=== PATIENT | male | born 1990 | race Caucasian/White ===

== ENCOUNTER → 2018-04-03 | Outpatient (CLI) | payer BC ==
[2018-04-03 17:42] LABS: BASO % 0.3 % (0.0-1.0); EOS % 0.1 % (0.0-3.0); HEMATOCRIT 45.8 % (42.0-52.0); HEMOGLOBIN 15.2 g/dl (13.5-17.5); IMMATURE GRANULOCYTE % 0.3 % (0-3.0); LYMPH # 1.1 10^3/uL (1.5-4.5); LYMPH % 12.5 % (24.0-44.0); MEAN CORPUSCULAR HGB CONC 33.2 g/dl (32.0-36.5); MEAN CORPUSCULAR VOLUME 84.5 fl (80.0-96.0); MONO # 1.4 10^3/uL (0.0-0.8); MONO % 15.8 % (0.0-5.0); NEUTROPHILS # 6.2 10^3/uL (1.8-7.7); PLATELET COUNT, AUTOMATED 248 10^3/uL (150-450); RED BLOOD COUNT 5.42 10^6/uL (4.30-6.10); WHITE BLOOD COUNT 8.8 10^3/uL (4.0-10.0)
[2018-04-03 17:58] LABS: ALBUMIN 3.9 GM/DL (3.2-5.2); ALBUMIN/GLOBULIN RATIO 1.22 (1.00-1.93); ALKALINE PHOSPHATASE 63 U/L (45-117); ALT/SGPT 35 U/L (12-78); ANION GAP 6 MEQ/L (8-16); AST/SGOT 18 U/L (7-37); BILIRUBIN,TOTAL 0.5 MG/DL (0.2-1.0); BLOOD UREA NITROGEN 11 MG/DL (7-18); CALCIUM LEVEL 9.2 MG/DL (8.5-10.1); CARBON DIOXIDE LEVEL 29 MEQ/L (21-32); CHLORIDE LEVEL 102 MEQ/L (98-107); CREATININE FOR GFR 0.89 MG/DL (0.70-1.30); GLOMERULAR FILTRATION RATE > 60.0 (>60); GLUCOSE, FASTING 104 MG/DL (70-100); POTASSIUM SERUM 4.4 MEQ/L (3.5-5.1); SODIUM LEVEL 137 MEQ/L (136-145); TOTAL PROTEIN 7.1 GM/DL (6.4-8.2)
== END ==
LOC: M WUC 14:00
DX: R11.2 Nausea with vomiting, unspecified (principal)
CPT/HCPCS: 80053

== ENCOUNTER → 2020-08-01 | Outpatient (REF) | LOC: M LABSMTC 09:59 | PROVIDERS: ATTEND Family Medicine | DX: Z20.822 Contact with and (suspected) exposure to COVID-19 (principal) ==

== ENCOUNTER 2022-05-28 15:18 | Emergency (ER) | payer BC ==
[~2022-05-28] VITALS: Ht 175.3 cm; Wt 72.7 kg
[2022-05-28] MEDS ORDERED: ERGO500029 (15:26)
[2022-05-28] MEDS ORDERED: AMPH1TAB2 (15:26)
[2022-05-28] MEDS ORDERED: BACT400T PO (15:26)
[2022-05-28] MEDS ORDERED: VILA10TA (15:26)
[2022-05-28 16:27] LABS: BASO # 0.1 10^3/uL (0.0-0.2); BASO % 0.4 % (0.0-1.0); EOS # 0.2 10^3/uL (0.0-0.5); EOS % 1.4 % (0.0-3.0); HEMATOCRIT 43.9 % (42.0-52.0); LYMPH % 13.6 % (24.0-44.0); MEAN CORPUSCULAR HEMOGLOBIN 27.2 pg (27.0-33.0); MEAN CORPUSCULAR HGB CONC 31.9 g/dl (32.0-36.5); MEAN CORPUSCULAR VOLUME 85.2 fl (80.0-96.0); MONO # 1.3 10^3/uL (0.0-0.8); MONO % 8.9 % (2.0-8.0); NEUTROPHILS # 11.2 10^3/uL (1.5-8.5); NEUTROPHILS % 74.8 % (36.0-66.0); PLATELET COUNT, AUTOMATED 427 10^3/uL (150-450); RED BLOOD COUNT 5.15 10^6/uL (4.30-6.10)
[2022-05-28 16:50] LABS: BLOOD UREA NITROGEN 15 MG/DL (9-23); CALCIUM LEVEL 9.7 MG/DL (8.5-10.1); CARBON DIOXIDE LEVEL 28 MMOL/L (20-31); CHLORIDE LEVEL 98 MMOL/L (98-107); CREATININE FOR GFR 0.72 MG/DL (0.70-1.30); GLOMERULAR FILTRATION RATE > 60.0 (>60); GLUCOSE, FASTING 102 MG/DL (60-100); POTASSIUM SERUM 4.3 MMOL/L (3.5-5.1); SODIUM LEVEL 137 MMOL/L (136-145)
[2022-05-28] MEDS ORDERED: MORPHINE 2 MG/ML 1ML VIAL IV ONE (17:55)
[2022-05-28] MEDS ORDERED: AMPICILLIN SOD/SULBACTAM SOD 3 GM in D5W MINI-BAG PLUS 100 ML IV ONE (17:55)
[2022-05-28] MEDS ORDERED: ONDANSETRON 4MG 2ML VIAL IV ONE (18:05)
[2022-05-28] MEDS ORDERED: LIDOCAINE W/EPINEPHRINE 1% 20ML VIAL SC ONE (18:50)
[2022-05-28] MEDS ORDERED: MORPHINE 4 MG/ML 1ML VIAL IV ONE (19:25)
[2022-05-28] MEDS ORDERED: BACT800T5 PO (19:44)
[2022-05-28] MEDS ORDERED: PERC5TAB12 PO (19:44)
[2022-05-28 19:53] LABS: ERYTHROCYTE SEDIMENTATION RATE 63 mm/hr (0-15)
[2022-05-28 20:46] VITALS: BP 125/81
== END 2022-05-28 20:48 | disposition home or self-care (01) ==
LOC: M ED 15:18
DX: L02.31 Cutaneous abscess of buttock (principal); F90.9 Attention-deficit hyperactivity disorder, unspecified type
CPT/HCPCS: 10060; 76857; 80048; 85025; 85652; 86140; 87040; 87070; 87077; 87186; 87205; 96365; 96375; 96376; 99283; J0295; J2270; J2405

== ENCOUNTER → 2024-06-07 | Outpatient (REF) ==
[~2024-06-07] MED LIST: AMPH1TAB2; BACT400T PO; BACT800T5 PO; ERGO500029; PERC5TAB12 PO; VILA10TA
== END ==
LOC: M EMP 12:53
PROVIDERS: ATTEND Family Medicine
DX: Z11.52 Encounter for screening for COVID-19 (principal)